=== PATIENT | female | born 1945 | race African-American/Black ===

== ENCOUNTER 2018-05-16 06:15 | Day surgery (SDC) | payer MEDICARE, MEDICAID ==
[~2018-05-16] VITALS: Ht 152.4 cm; Wt 59.9 kg
[~2018-05-16 06:15] MED LIST: ASPI-867; BP MEDS; [UNRECOGNIZED DRUG - OTHER]
[2018-05-16 07:51] LABS: EOSINOPHILS % 3.2 % (0.0-5.0); HEMATOCRIT. 34.1 % (36.0-48.0); HEMOGLOBIN. 12.1 g/dL (12.0-16.0); LYMPHOCYTES % 24.3 % (20.0-50.0); MEAN CORPUSCULAR HEMOGLOBIN 30.7 pg (28.0-32.0); MEAN CORPUSCULAR VOLUME 86.4 fL (81.0-99.0); MEAN PLATELET VOLUME 9.5 fl (7.4-10.4); MONOCYTES % 7.1 % (2.0-8.0); NEUTROPHILS % 64.4 % (40.0-76.0); PLATELET 119 x1000/uL (130-400); RED BLOOD CELL COUNT 3.94 mill/uL (4.2-5.4); RED CELL DISTRIBUTION WIDTH 13.6 % (11.6-14.6)
[2018-05-16 07:54] LABS: CHLORIDE 107 mEq/L (98-107)
[2018-05-16 08:07] LABS: INR 1.1; PARTIAL THROMBOPLASTIN TIME 29.3 sec (23.4-31.0); PROTHROMBIN TIME 11.6 sec (9.4-11.6)
[2018-05-16] MEDS ORDERED: MULT-1146 MT (08:07)
[2018-05-16] MEDS ORDERED: HYDR12.529 MT (08:07)
[2018-05-16] MEDS ORDERED: POTA20TA82 MT (08:07)
[2018-05-16] MEDS ORDERED: OMEP20CA10 MT (08:07)
[2018-05-16] MEDS ORDERED: COR3 MT (08:07)
[2018-05-16] MEDS ORDERED: ATROPINE SULFATE 0.1MG/ML 10ML DISP.SYRIN ONE (08:19)
[2018-05-16] MEDS ORDERED: FENTANYL CITRATE/PF 50MCG/ML 2ML VIAL ONE (08:29)
[2018-05-16] MEDS ORDERED: MIDAZOLAM HCL 2 MG/2 ML VIAL ONE (08:29)
[2018-05-16] MEDS ORDERED: LIDOCAINE HCL/PF 1% 10 MG/ML 5ML VIAL ONE (08:29)
[2018-05-16] MEDS ORDERED: IODIXANOL 320MG/ML 100 ML BOTTLE IV ONE (08:30)
[2018-05-16] MEDS ORDERED: IOHEXOL-300 100 ML BOTTLE ONE (08:51)
[2018-05-16] MEDS ORDERED: ONDANSETRON HCL 4MG/2ML VIAL IV PRN (09:45)
[2018-05-16] MEDS ORDERED: ACETAMINOPHEN 325MG TABLET PO PRN (09:45)
[2018-05-16] MEDS ORDERED: HEPARIN SODIUM 1,000 UNIT/1ML VIAL IV ONE (13:41)
== END 2018-05-16 16:00 | disposition home or self-care (01) ==
LOC: CCL 06:15
PROVIDERS: ATTEND Specialist
DX: I65.22 Occlusion and stenosis of left carotid artery (principal); G81.94 Hemiplegia, unspecified affecting left nondominant side; I10 Essential (primary) hypertension; E78.5 Hyperlipidemia, unspecified; I25.2 Old myocardial infarction; K21.9 Gastro-esophageal reflux disease without esophagitis; Z79.82 Long term (current) use of aspirin; Z79.899 Other long term (current) drug therapy; Z86.73 Personal history of transient ischemic attack (TIA), and cerebral infarction without residual deficits
CPT/HCPCS: 36222; 36415; 80048; 85025; 85347; 85610; 85730; 93005; 99152; 99153; C1725; C1760; C1769; C1893; J0461; J1644; J2250; J2405; J3010; J3490; Q9967

== ENCOUNTER 2018-06-11 07:30 | Day surgery (SDC) | payer MEDICARE, MEDICAID ==
[~2018-06-11] VITALS: Ht 152.4 cm; Wt 59.9 kg
[~2018-06-11 07:30] MED LIST changes: +COR3 MT; +HYDR12.529 MT; +MULT-1146 MT; +OMEP20CA10 MT; +POTA20TA82 MT
[2018-06-11] MEDS ORDERED: IODIXANOL 320MG/ML 100 ML BOTTLE IV ONE (08:10)
[2018-06-11] MEDS ORDERED: LIDOCAINE HCL 1% 20ML VIAL (Pyxis) INJ ONE (08:10)
[2018-06-11] MEDS ORDERED: POTASSIUM CHLORIDE 20MEQ/PACKET PO SCH (08:45)
[2018-06-11 08:52] LABS: BASOPHILS % 0.9 % (0.0-2.0); EOSINOPHILS % 3.3 % (0.0-5.0); HEMATOCRIT. 33.3 % (36.0-48.0); HEMOGLOBIN. 11.9 g/dL (12.0-16.0); LYMPHOCYTES % 25.4 % (20.0-50.0); MEAN CORPUSCULAR VOLUME 86.9 fL (81.0-99.0); MEAN PLATELET VOLUME 9.5 fl (7.4-10.4); MONOCYTES % 7.5 % (2.0-8.0); NEUTROPHILS % 62.9 % (40.0-76.0); RED BLOOD CELL COUNT 3.83 mill/uL (4.2-5.4); RED CELL DISTRIBUTION WIDTH 13.9 % (11.6-14.6)
[2018-06-11] MEDS ORDERED: ASPIRIN/SOD BICARB/CITRIC ACID 324MG TAB EFF ONE (08:55)
[2018-06-11] MEDS ORDERED: FENTANYL CITRATE/PF 50MCG/ML 2ML VIAL ONE (09:14)
[2018-06-11] MEDS ORDERED: MIDAZOLAM HCL 2 MG/2 ML VIAL ONE (09:14)
[2018-06-11] MEDS ORDERED: ATROPINE SULFATE 1MG/10ML SYR IV PRN (09:45)
[2018-06-11] MEDS ORDERED: ONDANSETRON HCL 4MG/2ML VIAL IV PRN (09:45)
[2018-06-11] MEDS ORDERED: MORPHINE SULFATE 4 MG/ML CPJ (NOT FOR IM USE) IV PRN (09:45)
[2018-06-11] MEDS ORDERED: ACETAMINOPHEN 325MG TABLET PO PRN (09:45)
[2018-06-11 11:52] LABS: PLATELET 129 x1000/uL (130-400)
[2018-06-11] MEDS ORDERED: HEPARIN SODIUM 1,000 UNIT/1ML VIAL IV ONE (14:43)
[2018-06-11] MEDS ORDERED: NICARDIPINE 100MCG/ML 10ML VIAL (CATH LAB) IV ONE (15:02)
[2018-06-11] MEDS ORDERED: NITROGLYCERIN 50MCG/ML 10ML VIAL (CATH LAB) IV ONE (15:02)
== END 2018-06-11 13:00 | disposition home or self-care (01) ==
LOC: CCL 07:30
PROVIDERS: ATTEND Specialist
DX: I25.10 Atherosclerotic heart disease of native coronary artery without angina pectoris (principal); I11.9 Hypertensive heart disease without heart failure; K21.9 Gastro-esophageal reflux disease without esophagitis; G81.94 Hemiplegia, unspecified affecting left nondominant side; E78.5 Hyperlipidemia, unspecified; I65.22 Occlusion and stenosis of left carotid artery; I25.2 Old myocardial infarction; Z79.82 Long term (current) use of aspirin; Z79.899 Other long term (current) drug therapy
CPT/HCPCS: 36415; 84132; 85025; 86022; 93459; 99152; 99153; C1769; C1887; C1893; J1644; J2250; J3010; J3490; Q9967

== ENCOUNTER → 2018-07-15 | Outpatient (CLI) | payer MEDICARE, MEDICAID | END | disposition home or self-care (01) | LOC: RAD 15:17 | PROVIDERS: ATTEND Specialist | DX: I11.9 Hypertensive heart disease without heart failure (principal); Z79.82 Long term (current) use of aspirin | CPT/HCPCS: 71046 ==

== ENCOUNTER 2018-11-21 16:12 | Emergency (ER) | payer MEDICARE, MEDICAID ==
[~2018-11-21] VITALS: Ht 152.4 cm; Wt 50.0 kg
[~2018-11-21 16:12] MED LIST changes: +ASA5EC; -ASPI-867; -BP MEDS; -[UNRECOGNIZED DRUG - OTHER]
[2018-11-21 16:24] VITALS: BP 122/77
== END 2018-11-21 18:55 | disposition left against medical advice (07) ==
LOC: ER 16:12
DX: Z53.21 Procedure and treatment not carried out due to patient leaving prior to being seen by health care provider (principal); K21.9 Gastro-esophageal reflux disease without esophagitis; M19.90 Unspecified osteoarthritis, unspecified site; I10 Essential (primary) hypertension; Z95.1 Presence of aortocoronary bypass graft; Z86.73 Personal history of transient ischemic attack (TIA), and cerebral infarction without residual deficits

== ENCOUNTER 2019-05-18 02:08 | Emergency (ER) | payer MEDICARE, MEDICAID ==
[~2019-05-18] VITALS: Ht 167.6 cm; Wt 65.0 kg
[~2019-05-18 02:08] MED LIST changes: -OMEP20CA10 MT; +OMEP20CA5 MT
[2019-05-18] MEDS ORDERED: ACETAMINOPHEN WITH CODEINE 300/30MG TABLET PO ONE (04:00)
[2019-05-18] MEDS ORDERED: TETANUS, DIPHTHERIA, PERTUSSIS VAC/PF 0.5ML (>7YR OLD) IM ONE (04:00)
[2019-05-18] MEDS ORDERED: CEPHALEXIN 250MG CAPSULE PO ONE (04:00)
[2019-05-18 04:27] VITALS: BP 147/82
== END 2019-05-18 05:01 | disposition home or self-care (01) ==
LOC: ER 02:08
DX: S01.01XA Laceration without foreign body of scalp, initial encounter (principal); S09.8XXA Other specified injuries of head, initial encounter; I10 Essential (primary) hypertension; W18.39XA Other fall on same level, initial encounter; Y93.89 Activity, other specified; Y92.89 Other specified places as the place of occurrence of the external cause; Y99.8 Other external cause status; Z86.73 Personal history of transient ischemic attack (TIA), and cerebral infarction without residual deficits; Z98.890 Other specified postprocedural states; Z95.1 Presence of aortocoronary bypass graft; Z79.82 Long term (current) use of aspirin; Z91.048 Other nonmedicinal substance allergy status
CPT/HCPCS: 12005; 99284

== ENCOUNTER 2019-06-10 06:32 | Emergency (ER) | payer MEDICARE, MEDICAID ==
[~2019-06-10] VITALS: Ht 152.4 cm; Wt 56.0 kg
[2019-06-10 08:55] VITALS: BP 140/72
== END 2019-06-10 08:58 | disposition home or self-care (01) ==
LOC: ER 06:32
DX: S01.81XD Laceration without foreign body of other part of head, subsequent encounter (principal); W18.39XD Other fall on same level, subsequent encounter; I10 Essential (primary) hypertension; Z86.73 Personal history of transient ischemic attack (TIA), and cerebral infarction without residual deficits; Z87.891 Personal history of nicotine dependence; Z98.890 Other specified postprocedural states; Z79.82 Long term (current) use of aspirin; Z79.899 Other long term (current) drug therapy
CPT/HCPCS: 99283

== ENCOUNTER 2021-07-03 18:17 | Inpatient (IN) | payer MEDICARE, MEDICAID ==
[~2021-07-03] VITALS: Ht 152.4 cm; Wt 53.3 kg
[~2021-07-03 18:17] MED LIST changes: -ASA5EC; +ASPI-867; +OMEP20CA14 MT; -OMEP20CA5 MT
[2021-07-03] MEDS ORDERED: CEFTRIAXONE 1 G PREMIX 50 ML IV ONE (19:45)
[2021-07-03] MEDS ORDERED: NYSTATIN 100,000 UNITS/GM CREAM 15GM TOP SCH (19:45)
[2021-07-03 19:58] LABS: BASOPHILS % 0.9 % (0.0-2.0); EOSINOPHILS % 1.5 % (0.0-5.0); HEMATOCRIT. 36.9 % (36.0-48.0); LYMPHOCYTES % 23.9 % (20.0-50.0); MEAN CORPUSCULAR HEMOGLOBIN 30.4 pg (28.0-32.0); MEAN CORPUSCULAR VOLUME 86.5 fL (81.0-99.0); MEAN PLATELET VOLUME 9.6 fl (7.4-10.4); MONOCYTES % 6.8 % (2.0-8.0); NEUTROPHILS % 66.9 % (40.0-76.0); PLATELET 126 x1000/uL (130-400); RED BLOOD CELL COUNT 4.27 mill/uL (4.2-5.4); RED CELL DISTRIBUTION WIDTH 13.8 % (11.6-14.6)
[2021-07-03 20:05] LABS: CHLORIDE 108 mEq/L (98-107)
[2021-07-03 20:55] LABS: CLARITY URINE CLOUDY (CLEAR); COLOR URINE DARK YELLOW (YELLOW); KETONES URINE TRACE (NEGATIVE); LEUKOCYTE ESTERASE URINE 3+ (NEGATIVE); NITRITE URINE NEGATIVE (NEGATIVE); OCCULT BLOOD URINE TRACE (NEGATIVE); PH URINE 6.5 (4.5-8.0); PROTEIN URINE 2+ (NEGATIVE); SPECIFIC GRAVITY URINE 1.015 (1.005-1.030)
[2021-07-04 08:00] VITALS: BP 179/84
[2021-07-04] MEDS ORDERED: MIRA25TA PO (09:25)
[2021-07-04] MEDS ORDERED: ATOR40TA70 PO (09:25)
[2021-07-04] MEDS ORDERED: CHOL-4 (09:25)
[2021-07-04] MEDS ORDERED: *PATIENT'S OWN MEDICATION STORAGE XX SCH (09:45)
[2021-07-04 09:47] VITALS: BP 179/84
[2021-07-04] MEDS ORDERED: ONDANSETRON HCL 4MG/2ML INJ IV PRN (11:30)
[2021-07-04] MEDS ORDERED: ACETAMINOPHEN 325MG TABLET PO PRN (11:30)
[2021-07-04] MEDS ORDERED: CEFTRIAXONE 1 G PREMIX 50 ML IV SCH (11:30)
[2021-07-04] MEDS ORDERED: POTASSIUM CHLORIDE 20MEQ TABLET SR PO SCH (11:30)
[2021-07-04 12:00] VITALS: BP 180/83
[2021-07-04] MEDS: CARVEDILOL 3.125 MG TABLET PO SCH ×2 (15:11→20:27)
[2021-07-04 16:00] VITALS: BP 118/78
[2021-07-04 20:00] VITALS: BP 141/75
[2021-07-04] MEDS: ATORVASTATIN CALCIUM 40MG TABLET PO SCH (20:27)
[2021-07-04] MEDS: CEFTRIAXONE 1,000 MG in DEXTROSE 5% WATER 50 ML IV SCH (20:27)
[2021-07-05] VITALS: BP 151/67
[2021-07-05 04:00] VITALS: BP 138/75
[2021-07-05 06:50] LABS: CHLORIDE 109 mEq/L (98-107)
[2021-07-05 08:00] VITALS: BP 170/75
[2021-07-05] MEDS: CARVEDILOL 3.125 MG TABLET PO SCH ×2 (08:58→18:16)
[2021-07-05 12:00] VITALS: BP 170/75
[2021-07-05] MEDS ORDERED: POTASSIUM CHLORIDE 20MEQ TABLET SR PO NR (12:00)
[2021-07-05] MEDS: AMLODIPINE 10MG TABLET PO SCH (13:39)
[2021-07-05 16:00] VITALS: BP 143/72
[2021-07-05] MEDS ORDERED: CLONIDINE 0.1MG TABLET PO PRN (19:45)
[2021-07-05 20:00] VITALS: BP 136/70
[2021-07-05] MEDS: CEFTRIAXONE 1,000 MG in DEXTROSE 5% WATER 50 ML IV SCH (20:39)
[2021-07-05] MEDS: ATORVASTATIN CALCIUM 40MG TABLET PO SCH (20:39)
[2021-07-06] VITALS (7 sets, daily range): BP systolic 124–151; BP diastolic 60–85
[2021-07-06] MEDS: CARVEDILOL 3.125 MG TABLET PO SCH ×2 (09:55→17:10)
[2021-07-06] MEDS: AMLODIPINE 10MG TABLET PO SCH (09:56)
[2021-07-06] MEDS ORDERED: LEVOFLOXACIN 500MG TABLET PO SCH ×2 (10:00→11:00)
[2021-07-06] MEDS: ATORVASTATIN CALCIUM 40MG TABLET PO SCH (20:18)
[2021-07-07 08:35] VITALS: BP 127/68
[2021-07-07 08:54] LABS: FOLIC ACID (FOLATE) SERUM >20 ng/mL ng/mL (>5.38)
[2021-07-07 09:05] LABS: VITAMIN B12 SERUM 347 pg/mL (211-911)
[2021-07-07] MEDS: AMLODIPINE 10MG TABLET PO SCH (09:09)
[2021-07-07] MEDS: CARVEDILOL 3.125 MG TABLET PO SCH ×2 (09:10→16:56)
[2021-07-07] MEDS: LEVOFLOXACIN 250MG TABLET PO SCH (10:16)
[2021-07-07 12:22] VITALS: BP 138/80
[2021-07-07] MEDS ORDERED: LEVO500T89 MT (16:04)
[2021-07-07 16:27] VITALS: BP 133/67
[2021-07-07 20:00] VITALS: BP 155/77
[2021-07-07] MEDS: ATORVASTATIN CALCIUM 40MG TABLET PO SCH (20:08)
[2021-07-08] VITALS: BP 147/67
[2021-07-08 04:00] VITALS: BP 131/78
[2021-07-08 08:00] VITALS: BP 131/72
[2021-07-08] MEDS: AMLODIPINE 10MG TABLET PO SCH (08:49)
[2021-07-08] MEDS: CARVEDILOL 3.125 MG TABLET PO SCH (08:49)
[2021-07-08 10:01] VITALS: BP 137/67
[2021-07-08] MEDS: LEVOFLOXACIN 250MG TABLET PO SCH (10:26)
[2021-07-08 12:00] VITALS: BP 137/67
[2021-07-12 07:12] LABS: 25-HYDROXY VITAMIN D3 4.1 ng/mL (.)
== END 2021-07-08 13:14 | disposition home or self-care (01) | DRG 689 ==
LOC: ER 18:17 → MICUSO 21:44 → EDBEDREQ 21:48 → EDBEDREQTM 21:48 → 8WST 07-04 07:22
PROVIDERS: ADMIT Internal Medicine; ATTEND Internal Medicine
DX: N39.0 Urinary tract infection, site not specified (principal); G82.50 Quadriplegia, unspecified; E44.1 Mild protein-calorie malnutrition; I69.354 Hemiplegia and hemiparesis following cerebral infarction affecting left non-dominant side; E87.6 Hypokalemia; E87.8 Other disorders of electrolyte and fluid balance, not elsewhere classified; I10 Essential (primary) hypertension; I25.10 Atherosclerotic heart disease of native coronary artery without angina pectoris; M17.0 Bilateral primary osteoarthritis of knee; R74.01 Elevation of levels of liver transaminase levels; R53.81 Other malaise; G83.89 Other specified paralytic syndromes; Z90.710 Acquired absence of both cervix and uterus; Z95.1 Presence of aortocoronary bypass graft; Z79.899 Other long term (current) drug therapy; Z79.82 Long term (current) use of aspirin; I25.2 Old myocardial infarction; Z91.048 Other nonmedicinal substance allergy status; Z95.5 Presence of coronary angioplasty implant and graft; Z68.22 Body mass index [BMI] 22.0-22.9, adult
CPT/HCPCS: 36415; 70551; 71045; 73560; 80048; 80053; 81003; 82140; 82306; 82607; 82746; 83880; 84443; 84484; 85025; 92523; 92610; 93005; 97162; 97166; 97530; 97535; 99285; C1893; J0696; J7060

== ENCOUNTER 2022-01-25 22:33 | Emergency (ER) | payer MEDICARE, MEDICAID ==
[~2022-01-25] VITALS: Ht 162.6 cm; Wt 59.0 kg
[~2022-01-25 22:33] MED LIST changes: +ATOR40TA70 PO; +CHOL-4; -HYDR12.529 MT; +LEVO500T89 MT; +MIRA25TA PO; -POTA20TA82 MT
[2022-01-26 00:30] LABS: CLARITY URINE CLOUDY (CLEAR); COLOR URINE YELLOW (YELLOW); KETONES URINE NEGATIVE (NEGATIVE); LEUKOCYTE ESTERASE URINE 3+ (NEGATIVE); NITRITE URINE POSITIVE (NEGATIVE); OCCULT BLOOD URINE 2+ (NEGATIVE); PROTEIN URINE 1+ (NEGATIVE); SPECIFIC GRAVITY URINE 1.009 (1.005-1.030)
[2022-01-26 00:40] LABS: BASOPHILS % 0.8 % (0.0-2.0); EOSINOPHILS % 1.1 % (0.0-5.0); HEMATOCRIT. 39.5 % (36.0-48.0); HEMOGLOBIN. 13.9 g/dL (12.0-16.0); LYMPHOCYTES % 18.4 % (20.0-50.0); MEAN CORPUSCULAR HEMOGLOBIN 30.4 pg (28.0-32.0); MEAN CORPUSCULAR VOLUME 86.6 fL (81.0-99.0); MEAN PLATELET VOLUME 9.3 fl (7.4-10.4); NEUTROPHILS % 74.7 % (40.0-76.0); PLATELET 118 x1000/uL (130-400); RED BLOOD CELL COUNT 4.56 mill/uL (4.2-5.4); RED CELL DISTRIBUTION WIDTH 14.1 % (11.6-14.6)
[2022-01-26 00:46] LABS: CHLORIDE 107 mEq/L (98-107)
[2022-01-26] MEDS ORDERED: SULFAMETHOXAZOLE/TRIMETHOPRIM 800/160MG TABLET PO ONE (01:15)
[2022-01-26] MEDS ORDERED: SULF1TAB48 MT (01:32)
[2022-01-26 01:40] VITALS: BP 145/77
== END 2022-01-26 01:40 | disposition home or self-care (01) ==
LOC: ER 22:33
DX: N39.0 Urinary tract infection, site not specified (principal); E78.00 Pure hypercholesterolemia, unspecified; I10 Essential (primary) hypertension; M19.90 Unspecified osteoarthritis, unspecified site; Z95.1 Presence of aortocoronary bypass graft; Z79.82 Long term (current) use of aspirin; Z86.73 Personal history of transient ischemic attack (TIA), and cerebral infarction without residual deficits; Z91.048 Other nonmedicinal substance allergy status
CPT/HCPCS: 36415; 80053; 81003; 85025; 93005; 99284